=== PATIENT | male | born 1945 | race Caucasian/White ===

== ENCOUNTER 2023-10-22 09:01 | Observation (INO) | payer BC ==
[2023-10-22] MEDS ORDERED: NITROGLYCERIN SL TABS 0.4 MG TAB SUBLINGUAL PRN (09:43)
--- NOTE | 2023-10-22 09:43 | ED ---
General Adult HPI - General Chief complaint: Chest Pain Stated complaint: Chest Pain Time Seen by Provider: 10/22/23 09:12 Source: patient, RN notes reviewed Mode of arrival: ambulatory Limitations: no limitations - History of Present Illness Initial comments: Patient is a 78-year-old male presenting to the emergency department with concerns for chest pain. Onset was around 230. Discomfort is like pressure. Mild sweating, mild dyspnea. No nausea or vomiting. Discomfort is sternal. No radiation. Discomfort is currently 2/10. Patient was seen at [facility] and transferred. Chart reviewed. - Related Data Allergies Allergy/AdvReac Type Severity Reaction Status Date / Time No Known Allergies Allergy Verified 10/22/23 09:15 Review of Systems ROS Statement: Those systems with pertinent positive or pertinent negative responses have been documented in the HPI. ROS Other: All systems not noted in ROS Statement are negative. Constitutional: Denies: fever Eyes: Denies: eye pain ENT: Denies: ear pain Respiratory: Denies: cough Cardiovascular: Reports: as per HPI, chest pain Musculoskeletal: Denies: back pain Past Medical History Past Medical History: No Reported History History of Any Multi-Drug Resistant Organisms: None Reported Past Surgical History: Appendectomy, Tonsillectomy Past Psychological History: No Psychological Hx Reported Smoking Status: Never smoker Past Alcohol Use History: None Reported Past Drug Use History: None Reported General Exam Limitations: no limitations General appearance: alert, in no apparent distress Head exam: Present: normocephalic Eye exam: Present: normal appearance Neck exam: Present: normal inspection Respiratory exam: Present: normal lung sounds bilaterally Cardiovascular Exam: Present: bradycardia, normal heart sounds Expanded Peripheral pulses: 2+: Radial (R), Radial (L), Dorsalis Pedis (R), Dorsalis P kayla (L) GI/Abdominal exam: Present: soft. Absent: tenderness Extremities exam: Present: normal inspection. Absent: pedal edema, calf tenderness Neurological exam: Present: alert Psychiatric exam: Present: normal affect, normal mood Skin exam: Present: normal color Course Vital Signs 10/22/23 09:09 Temperature 97.8 F Pulse Rate 46 L Respiratory 18 Rate Blood Pressure 160/69 O2 Sat by Pulse 96 Oximetry EKG Findings - EKG Results: EKG: interpreted by ERMD, sinus rhythm, normal axis, normal QRS, normal ST/T Medical Decision Making - Medical Decision Making Was pt. sent in by a medical professional or institution (, MANOLO, LOADING UNIT TOOL SETTER, urgent care, hospital, or senior care...) When possible be specific @ -Patient was sent from [facility] Did you speak to anyone other than the patient for history (EMS, parent, family, police, friend...)? What history was obtained from this source @ -Transferring physician Did you review nursing and triage notes (agree or disagree)? Why? @ -I reviewed and agree with nursing and triage notes Were old charts reviewed (outside hosp., previous admission, EMS record, old EKG, old radiological studies, urgent care reports/EKG's, senior care records)? Report findings @ -Chart reviewed from [facility] Differential Diagnosis (chest pain, altered mental status, abdominal pain women, abdominal pain men, vaginal bleeding, weakness, fever, dyspnea, syncope, headache, dizziness, GI bleed, back pain, seizure, CVA, palpatations, mental health, musculoskeletal)? @ -Differential Chest Pain: Stable Angina, Unstable Angina, STEMI, NSTEMI Aortic Dissection, Pneumothorax, Musculoskeletal, Esophageal Spasm GERD, Cholecystitis, Pancreatitis, Zoster, this is not meant to be an all-inclusive list. EKG interpreted by me (3pts min.). @ -As above X-rays interpreted by me (1pt min.). @ -None done CT interpreted by me (1pt min.). @ -None done U/S interpreted by me (1pt. min.). @ -None done What testing was considered but not performed or refused? (CT, X-rays, U/S, labs)? Why? @ -None What meds were considered but not given or refused? Why? @ -None Did you discuss the management of the patient with other professionals (professionals i.e. , MANOLO, LOADING UNIT TOOL SETTER, lab, RT, psych nurse, delinquency prevention social worker, sales marketing director, teacher, personnel training officer, case investigator)? Give summary @ -Case discussed with Dr. Flores who will admit covering hospital call Was smoking cessation discussed for >3mins.? @ -No Was critical care preformed (if so, how long)? @ -No Were there social determinants of health that impacted care today? How? (Homelessness, low income, unemployed, alcoholism, drug addiction, transportation, low edu. Level, literacy, decrease access to med. care, assisted, rehab)? @ -No Was there de-escalation of care discussed even if they declined (Discuss DNR or withdrawal of care, Hospice)? DNR status @ -No What co-morbidities impacted this encounter? (DM, HTN, Smoking, COPD, CAD, Cancer, CVA, ARF, Chemo, Hep., AIDS, mental health diagnosis, sleep apnea, morbid obesity)? @ -History of hypertension Was patient admitted / discharged? Hospital course, mention meds given and route, prescriptions, significant lab abnormalities, going to OR and other pertinent info. @ -Patient presents as transfer from [facility] for chest pain. Patient evaluated. Patient will be admitted with cardiac consult. Admission orders written. Undiagnosed new problem with uncertain prognosis? @ -No Drug Therapy requiring intensive monitoring for toxicity (Heparin, Nitro, Insulin, Cardizem)? @ -No Were any procedures done? @ -No Diagnosis/symptom? @ -Chest pain Acute, or Chronic, or Acute on Chronic? @ -Acute Uncomplicated (without systemic symptoms) or Complicated (systemic symptoms)? @ -Default Side effects of treatment? @ -No Exacerbation, Progression, or Severe Exacerbation? @ -No Poses a threat to life or bodily function? How? (Chest pain, USA, ID, pneumonia, PE, COPD, DKA, ARF, appy, cholecystitis, CVA, Diverticulitis, Homicidal, Suicidal, threat to staff... and all critical care pts) @ -Threat to cardiac function Disposition Clinical Impression: Chest pain Disposition: ADMITTED IP TO THIS HOSP Is patient prescribed a controlled substance at d/c from ED?: No Referrals: None,Stated [Primary Care Provider] - 1-2 days Time of Disposition: 09:43
[2023-10-22] MEDS: ASPIRIN 81 MG PO STA (09:51)
--- NOTE | 2023-10-22 11:07 | P.HPIM ---
History of Present Illness H&P Date: 10/22/23 History of Presenting Illness: Patient is a very pleasant 78-year-old male with a past medical history of hypertension, hyperlipidemia, and provoked DVT (20 years ago). He lives in [place] and is currently camping in this area. He reports following with a primary care doctor in [place] but denies following with a wood filler and denies cardiac history. He reports lying in bed and awoke around 2:30 AM with chest pain/pressure to his midsternal chest accompanied by diaphoresis and shortness of breath. Patient described this pain as a pressure and reports it was like someone just punched him right in the middle of his chest. He denies any radiation of pain but reports pain has been waxing and waning on and off throughout the morning and has been accompanied by mild diaphoresis and shortness of breath. He denies having any headache, lightheadedness, dizziness, palpitations, cough or congestion, nausea, vomiting, or experiencing any numbness/tingling/weakness/swelling in his extremities. Patient initially presented to [facility] and underwent evaluation in their emergency department and was transferred to our facility for admission to cardiac observation unit for further evaluation and consult to wood filler.. Upon arrival to our facility, patient underwent evaluation in our emergency department. Vital signs upon arrival show blood pressure 160/69, heart rate 46, respiratory rate 18, temp 97.8 F, and SpO2 of 96% on room air. EKG was completed showing sinus bradycardia at 44 bpm with no noted T wave or ST abnormalities showing no signs of acute ischemia upon personal review and interpretation. Troponin less than 0.012. Patient admitted under our services with consultation to cardiology. Data reviewed from [facility]: Vital signs upon arrival to their facility show blood pressure 142/66, heart rate 48, respiratory rate 19, temp 97.2 F, and SpO2 of 95% on room air. Troponin less than 0.05 with repeat troponin less than 0.05. D-dimer was elevated at 2.370. Magnesium 2.0. BMP was unremarkable with sodium of 140, potassium 3.9, chloride 106, bicarb 21, slightly elevated anion gap of 13 and normal renal function with BUN of 20.0, creatinine 1.0, and GFR of 81.30. Liver profile normal findings with exception of slightly elevated AST of 45. Coagula tion profile showing PT of 12.1, INR 1.18, and PTT 24.3. BNP normal findings at less than 27. CBC showing no significant abnormalities with WBC count of 7.1, hemoglobin 13.7, and platelet count of 202,000. CT abdomen and pelvis with contrast was negative for acute process. CTA chest negative for PE Chest x-ray negative for acute cardiopulmonary process. Review of systems: Pertinent positives and negatives as discussed in HPI, a complete review of systems was performed and all other systems are negative. Physical exam: Vital signs reviewed and stable. General: Nontoxic, no distress and appears stated age. Derm: Skin warm and dry, normal coloration for ethnicity. Head: Atraumatic, normocephalic and symmetric. Eyes: EOMs intact, no lid lag, and anicteric sclera Mouth: no lip lesions, mucus membranes moist Cardiovascular: regular rate and rhythm with normal S1S2, no murmur, positive posterior tibial pulses bilaterally, and cap refill < 2 seconds. Lungs: Respirations even, regular, and unlabored on room air. Lungs CTA bilaterally, no rhonchi, no rales, no wheezing, and no accessory muscle usage. Abdominal: soft, nontender to palpation, no guarding, no appreciable organomegaly Ext: ROM intact. No gross muscle atrophy, no edema, no contractures Neuro: Speech clear, face symmetrical and CN II-XII grossly intact with no noted focal neuro deficits Psych: Alert and oriented to person, place, time, and situation. Appropriate and pleasant affect. Assessment and Plan of Care: Chest pain, rule out acute coronary event Asymptomatic bradycardia Elevated D-dimer, CTA negative for PE Hypertension Hyperlipidemia -Cardiology consulted, appreciate recommendations -Telemetry monitoring -Trend troponins -Cardiac diet, NPO at midnight -Aspirin 81 mg daily, atorvastatin 20 mg daily, and lisinopril 20 mg daily. -Lipid profile with a.m. labs. -Echocardiogram Data and imaging reviewed: As stated above in HPI The patient is admitted with an anticipated less than 2 midnight stay for evaluation of atypical chest pain CODE STATUS: Full code DVT prophylaxis: Heparin Anticipated discharge date: Pending clinical course, likely 24 to [address]: Home Patient was seen independently by Nurse Practitioner. This document was prepared using [employer] dictation software. Please allow for errors in cash applications clerk while rare they do occur. . I reviewed the documentation as provided by the SUSHANT above, who is the original author of this note. I agree with the documented assessment and plan, with the following changes: none Past Medical History Past Medical History: No Reported History History of Any Multi-Drug Resistant Organisms: None Reported Past Surgical History: Appendectomy, Tonsillectomy Past Psychological History: No Psychological Hx Reported Smoking Status: Never smoker Past Alcohol Use History: None Reported Past Drug Use History: None Reported Medications and Allergies Home Medications Medication Instructions Recorded Confirmed Type Simvastatin [Zocor] 20 mg PO DAILY 10/22/23 10/22/23 History Fenofibrate,Micronized 134 mg PO DAILY 10/24/23 10/24/23 History [Fenofibrate] lisinopriL [Zestril] 20 mg PO DAILY 10/24/23 10/24/23 History Allergies Allergy/AdvReac Type Severity Reaction Status Date / Time No Known Allergies Allergy Verified 10/22/23 10:42 Physical Exam Vitals: Vital Signs Temp Pulse Resp BP Pulse Ox 10/22/23 11:02 42 L 18 169/70 98 10/22/23 09:09 97.8 F 46 L 18 160/69 96 Intake and Output 10/21/23 10/22/23 10/22/23 22:59 06:59 14:59 Other: Weight 81.647 kg Results CBC & Chem 7: 10/23/23 03:22 10/23/23 03:22
[2023-10-22] MEDS ORDERED: lisinopriL 20 MG TAB PO SCH (11:30)
--- NOTE | 2023-10-22 12:44 | P.CRDCN ---
History of Present Illness Consult date: 10/22/23 History of present illness: This is a 78-year-old gentleman with a past medical history significant for hypertension and known asymptomatic bradycardia presented to the hospital complaining of chest discomfort but he was camping with his family when he started experiencing discomfort in the middle of the chest when he was sitting with no radiation to the arms or neck or shoulders or back and no associated symptoms of shortness of breath or sweating or dizziness or lightheadedness or any feeling of heart racing or fluttering or presyncope or syncope. The discomfort lasted for few minutes only and resolved. He decided to come to the hospital. Further investigation performed including an EKG showing sinus rhythm with sinus bradycardia with no ischemic ST or T wave abnormalities and also enzymes were checked in different hospital but not available at this point came in to be unremarkable. We are going to repeat the cardiac enzymes while he is here. The rest of the workup by history came in to be unremarkable and currently his chest pain-free. No history of CAD or heart failure or cardiac arrhythmia and never seen a health science specialist before. The examination is remarkable for regular rhythm with a soft systolic murmur and clear breathing sounds bilaterally and no carotid bruit and no edema was noted Assessment Chest discomfort seems to be atypical and has resolved Hypertension Asymptomatic bradycardia Plan Avoid any AV regine brenda agents Rule out acute coronary event Obtain serial cardiac enzymes Obtain an echocardiogram with Doppler Obtain TSH and free T4 Follow-up with the patient Past Medical History Past Medical History: No Reported History History of Any Multi-Drug Resistant Organisms: None Reported Past Surgical History: Appendectomy, Tonsillectomy Past Psychological History: No Psychological Hx Reported Smoking Status: Never smoker Past Alcohol Use History: None Reported Past Drug Use History: None Reported Medications and Allergies Home Medications Medication Instructions Recorded Confirmed Type Lisinopril(Unknown Dose) 20 mg PO DAILY 10/22/23 10/22/23 History Simvastatin [Zocor] 20 mg PO DAILY 10/22/23 10/22/23 History Allergies Allergy/AdvReac Type Severity Reaction Status Date / Time No Known Allergies Allergy Verified 10/22/23 10:42 Physical Exam Vitals: Vital Signs Temp Pulse Pulse Resp BP BP Pulse Ox 10/22/23 11:34 97.7 F 46 L 16 170/75 98 10/22/23 11:02 42 L 18 169/70 98 10/22/23 09:09 97.8 F 46 L 18 160/69 96 Intake and Output 10/21/23 10/22/23 10/22/23 22:59 06:59 14:59 Other: Weight 81.647 kg Results Cardiac Enzymes 10/22/23 Range/Units 10:45 Troponin I <0.012 (0.000-0.034) ng/mL Current Medications Generic Name Dose Route Start Last Admin Trade Name Freq PRN Reason Stop Dose Admin Aspirin 81 mg 10/23/23 09:00 Aspirin 81 Mg PO DAILY [facility] Atorvastatin Calcium 20 mg 10/23/23 09:00 Atorvastatin 20 Mg Tab PO DAILY [facility] Heparin Sodium (Porcine) 5,000 unit 10/22/23 16:00 Heparin Sodium,Porcine 5,000 Unit/Ml 1 Ml Vial SQ Q8HR [facility] Lisinopril 20 mg 10/22/23 11:30 Lisinopril 20 Mg Tab PO DAILY [facility] Nitroglycerin 0.4 mg 10/22/23 09:43 Nitroglycerin Sl Tabs 0.4 Mg Tab SUBLINGUAL Q5M PRN Chest Pain Nitroglycerin 1 inch 10/22/23 12:00 Nitroglycerin Oint 1 Inch/Gm Packet TOPICAL Q6HR [facility] Intake and Output 10/21/23 10/22/23 10/22/23 22:59 06:59 14:59 Other: Weight 81.647 kg Patient Weight 10/23/23 06:59 Weight 81.647 kg
[2023-10-22] MEDS: NITROGLYCERIN OINT 1 INCH/GM PACKET TOPICAL SCH (13:01)
[2023-10-22] MEDS: lisinopriL 20 MG TAB PO SCH (16:48)
[2023-10-22] MEDS: HEPARIN SODIUM,PORCINE 5,000 UNIT/ML 1 ML VIAL SQ SCH (16:50)
[2023-10-23 03:49] LABS: HCT 39.1 % (39.0-53.0); HGB 13.3 gm/dL (13.0-17.5); MCH 33.7 pg (25.0-35.0); MCV 98.9 fL (80.0-100.0); Mean Platelet Volume 7.2; Platelet Count 217 k/uL (150-450); RBC 3.96 m/uL (4.30-5.90); RDW 12.5 % (11.5-15.5); WBC 5.1 k/uL (3.8-10.6)
[2023-10-23] MEDS ORDERED: ATORVASTATIN 10 MG TAB PO SCH (09:00)
[2023-10-23] MEDS ORDERED: ASPIRIN 325 MG TAB PO SCH (09:00)
[2023-10-23] MEDS: ASPIRIN 81 MG PO SCH (09:20)
[2023-10-23] MEDS: ATORVASTATIN 20 MG TAB PO SCH (09:20)
--- NOTE | 2023-10-23 11:32 | P.PN ---
Subjective Progress Note Date: 10/23/23 Principal diagnosis: I reviewed the documentation as provided by the SUSHANT above, who is the original author of this note. I agree with the documented assessment and plan, with the following changes: none Hospital Course: Patient is a very pleasant 78-year-old male with a past medical history of hypertension, hyperlipidemia, and provoked DVT (20 years ago). He lives in [place] and is currently camping in this area. He reports following with a primary care doctor in [place] but denies following with a senior network administrator and denies cardiac history. He reports lying in bed and awoke around 2:30 AM with chest pain/pre ssure to his midsternal chest accompanied by diaphoresis and shortness of breath. Patient described this pain as a pressure and reports it was like someone just punched him right in the middle of his chest. He denies any radiation of pain but reports pain has been waxing and waning on and off thro ughout the morning and has been accompanied by mild diaphoresis and shortness of breath. He denies having any headache, lightheadedness, dizziness, palpitations, cough or congestion, nausea, vomiting, or experiencing any numbness/tingling/weakness/swelling in his extremities. Patient initially pre sented to [facility] and underwent evaluation in their emergency department and was transferred to our facility for admission to cardiac observation unit for further evaluation and consult to senior network administrator.. Upon arrival to our facility, patient underwent evaluation in our emergency depart ment. Vital signs upon arrival show blood pressure 160/69, heart rate 46, respiratory rate 18, temp 97.8 F, and SpO2 of 96% on room air. EKG was completed showing sinus bradycardia at 44 bpm with no noted T wave or ST abnormalities showing no signs of acute ischemia upon personal review and inter pretation. Troponin less than 0.012. Patient admitted under our services with consultation to cardiology. Data reviewed from [facility]: Vital signs upon arrival to their facility show blood pressure 142/66, heart rate 48, respiratory rate 19, temp 97.2 F, and SpO2 of 95% on room air. Troponin less than 0.05 with repeat troponin less than 0.05. D-dimer was elevated at 2.370. Magnesium 2.0. BMP was unremarkable with sodium of 140, po tassium 3.9, chloride 106, bicarb 21, slightly elevated anion gap of 13 and normal renal function with BUN of 20.0, creatinine 1.0, and GFR of 81.30. Liver profile normal findings with exception of slightly elevated AST of 45. Coagulation profile showing PT of 12.1, INR 1.18, and PTT 24.3. BNP normal findings at less than 27. CBC showing no significant abnormalities with WBC count of 7.1, hemoglobin 13.7, and platelet count of 202,000. CT abdomen and pelvis with contrast was negative for acute process. CTA chest negative for PE Chest x-ray negative for acute cardiopulmonary process. Physical exam: Patient was seen and fully evaluated at bedside this morning. He reports no further episodes of chest pain/pressure since yesterday denies having any other complaints including headache, lightheadedness, dizziness, diaphoresis, palpitations, shortness of breath, cough or congestion, abdominal pain, nausea, or vomiting. Vital signs reviewed and stable. General: Nontoxic, no distress and appears stated age. Derm: Skin warm and dry, normal coloration for ethnicity. Head: Atraumatic, normocephalic and symmetric. Eyes: EOMs intact, no lid lag, and anicteric sclera Mouth: no lip lesions, mucus membranes moist Cardiovascular: regular rate and rhythm with normal S1S2, no murmur, positive posterior tibial pulses bilaterally, and cap refill < 2 seconds. Lungs: Respirations even, regular, and unlabored on room air. Lungs CTA bila terally, no rhonchi, no rales, no wheezing, and no accessory muscle usage. Abdominal: soft, nontender to palpation, no guarding, no appreciable organomegaly Ext: ROM intact. No gross muscle atrophy, no edema, no contractures Neuro: Speech clear, face symmetrical and CN II-XII grossly intact with no noted focal neuro deficits Psych: Alert and oriented to person, place, time, and situation. Appropriate and pleasant affect. Assessment and Plan of Care: Chest pain, acute coronary event ruled out Asymptomatic bradycardia Elevated D-dimer, CTA negative for PE Hypertension Hyperlipidemia -Cardiology consulted, reviewed documentation in chart. -Telemetry monitoring -Troponins negative. -Cardiac diet -Continue aspirin 81 mg daily, atorvastatin 20 mg daily, and lisinopril 20 mg daily. -Lipid profile pending. -Echocardiogram completed and currently pending results. Data and imaging reviewed: Labs reviewed. Troponins negative at less than 0.012 x 2 draws. Repeat morning CBC was unremarkable. TSH normal findings at 0.862. CMP and lipid profile pending at this time, will follow-up with results once available. Vital signs reviewed. Blood pressure 147/71, heart rate 49, respiratory rate 17, temp 97.5 F, and SpO2 of 96% on room air. The patient is admitted with an anticipated less than 2 midnight stay for evaluation of atypical chest pain CODE STATUS: Full code DVT prophylaxis: Heparin Anticipated discharge date: Pending clinical course, likely 24 to [address]: Home Patient was seen independently by Nurse Practitioner. This document was prepared using [employer] dictation software. Please allow for errors in ranch helper while rare they do occur. Objective - Vital Signs Vital signs: Vital Signs Temp 97.5 F L 10/23/23 07:00 Pulse 49 L 10/23/23 07:00 Resp 17 10/23/23 07:00 BP 147/71 10/23/23 07:00 Pulse Ox 96 10/23/23 07:00 FiO2 Intake & Output 10/22/23 10/23/23 10/23/23 18:59 06:59 18:59 Intake Total 236 780 Balance 236 780 Weight 81.647 kg Intake: Oral 236 780 Other: # Voids 2 2 - Labs CBC & Chem 7: 10/23/23 03:22 10/23/23 03:22 Labs: Abnormal Lab Results - Last 24 Hours (Table) 10/23/23 Range/Units 03:22 RBC 3.96 L (4.30-5.90) m/uL
--- NOTE | 2023-10-23 12:26 | P.PN ---
Subjective Progress Note Date: 10/23/23 This is a 78-year-old gentleman with a past medical history significant for hypertension and known asymptomatic bradycardia presented to the hospital complaining of chest discomfort but he was camping with his family when he started experiencing discomfort in the middle of the chest when he was sitting with no radiation to the arms or neck or shoulders or back and no associated symptoms of shortness of breath or sweating or dizziness or lightheadedness or any feeling of heart racing or fluttering or presyncope or syncope. The discomfort lasted for few minutes only and resolved. He decided to come to the hospital. Further investigation performed including an EKG showing sinus rhythm with sinus bradycardia with no ischemic ST or T wave abnormalities and also enzymes were checked in different hospital but not available at this point came in to be unremarkable. We are going to repeat the cardiac enzymes while he is here. The rest of the workup by history came in to be unremarkable and curre ntly his chest pain-free. No history of CAD or heart failure or cardiac arrhythmia and never seen a vehicle sales professional before. The examination is remarkable for regular rhythm with a soft systolic murmur and clear breathing sounds bilaterally and no carotid bruit and no edema was noted April 24, 2023 The patient was seen and evaluated this morning. He is asymptomatic. He is stable with marginally low heart rate which is known to him from before. The echo still pending. I advised the patient to undergo a stress test to rule out severe underlying coronary artery disease and he would like to speak with his and think about it at this point. Examination is remarkable for regular rhythm with a clear breathing sounds bilaterally and no edema was noted in the lower extremities. Please note that TSH and free T4 came in to be unremarkable Assessment Chest discomfort seems to be atypical and has resolved Hypertension Asymptomatic bradycardia Plan Avoid any AV regine brenda agents Acute coronary syndrome was ruled out Thyroid disorder has been ruled out Stress test if the patient agreed Follow-up on the echocardiogram Objective - Vital Signs Vital signs: Vital Signs Temp 97.5 F L 10/23/23 07:00 Pulse 49 L 10/23/23 07:00 Resp 17 10/23/23 07:00 BP 147/71 10/23/23 07:00 Pulse Ox 96 10/23/23 07:00 FiO2 Intake & Output 10/22/23 10/23/23 10/23/23 18:59 06:59 18:59 Intake Total 236 780 236 Balance 236 780 236 Weight 81.647 kg Intake: Oral 236 780 236 Other: # Voids 2 2 - Labs CBC & Chem 7: 10/23/23 03:22 Labs: Abnormal Lab Results - Last 24 Hours (Table) 10/23/23 Range/Units 03:22 RBC 3.96 L (4.30-5.90) m/uL
[2023-10-23 12:59] LABS: Blood Urea Nitrogen 15.3 mg/dL (9.0-27.0); Chloride 107 mmol/L (96-109); Glucose 103 mg/dL (70-110); LDL Cholesterol,Calculated 97.3 mg/dL (0.0-131.0); Magnesium 1.9 mg/dL (1.5-2.4); Potassium 4.7 mmol/L (3.5-5.5); Sodium 140 mmol/L (135-145)
[2023-10-23 13:00] LABS: ALT 42 U/L (10-49); AST 49 U/L (14-35); Albumin 3.8 g/dL (3.8-4.9); Albumin/Globulin Ratio 1.52 Ratio (1.60-3.17); Alkaline Phosphatase 56 U/L (41-126); Calcium 9.4 mg/dL (8.7-10.3); Globulin 2.5 g/dL (1.6-3.3); Total Bilirubin 0.5 mg/dL (0.3-1.2); Total Protein 6.3 g/dL (6.2-8.2)
--- NOTE | 2023-10-23 15:34 | CA ---
Transthoracic Echo Report Name: Sulaiman Delgado Age: 78 Gender: M : 1945 Exam Date: 10/22/2023 14:35 Exam Location: [facility] Ht (in): 69 Wt (lb): 180 Ordering Physician: Pawel Ware Attending/Referring Phys: Appraiser Personal Property Emily Kimbrough RDCS Procedure CPT: Indications: eval structure and funciton of heart Cardiac Hx: Technical Quality: Technically difficult study Contrast 1: Definity Total Dose (mL): 2 Contrast 2: Total Dose (mL): MEASUREMENTS (Male / Female) Normal Values 2D ECHO LV Diastolic Diameter PLAX 5.1 cm 4.2 - 5.9 / 3.9 - 5.3 cm LV Systolic Diameter PLAX 3.8 cm IVS Diastolic Thickness 1.2 cm 0.6 - 1.0 / 0.6 - 0.9 cm LVPW Diastolic Thickness 1.1 cm 0.6 - 1.0 / 0.6 - 0.9 cm LV Relative Wall Thickness 0.5 RV Internal Dim ED PLAX 3.3 cm LA Systolic Diameter LX 4.2 cm 3.0 - 4.0 / 2.7 - 3.8 cm LA Volume 75.2 cm??? 18 - 58 / 22 - 52 cm??? LA Volume Index 37.4 cm???/m??? 16 - 28 cm???/m??? M-MODE Aortic Root Diameter MM 3.3 cm AV Cusp Separation MM 2.1 cm DOPPLER AV Peak Velocity 191.3 cm/s AV Peak Gradient 14.6 mmHg AV Mean Velocity 128.8 cm/s AV Mean Gradient 7.4 mmHg AV Velocity Time Integral 42.6 cm AI Peak Velocity 149.3 cm/s AI Peak Gradient 8.9 mmHg AI Pressure Half Time 639.7 ms MV Area PHT 2.1 cm??? Mitral E Point Velocity 84.2 cm/s Mitral A Point Velocity 109.5 cm/s Mitral E to A Ratio 0.8 MV Deceleration Time 364.7 ms TR Peak Velocity 243.8 cm/s TR Peak Gradient 23.8 mmHg Right Ventricular Systolic Press 28.0 mmHg FINDINGS Left Ventricle Left ventricular ejection fraction is estimated at 55-60 %. Left ventricular cavity size normal. Mildly increased septal wall thickness. No obvious regional wall motion abnormalities. Right Ventricle Mild right ventricular dilatation. Right ventricular systolic pressure within normal limits. Right Atrium Normal right atrial size. No right atrial thrombus or mass seen. Left Atrium Mildly increased left atrial diameter. Moderately increased left atrial volume. Mildly increased left atrial area. Mitral Valve Mitral valve thickened. No mitral stenosis, regurgitation or prolapse. Aortic Valve Trileaflet aortic valve. Aortic valve sclerosis. Mild aortic stenosis with a peak gradient of 15 mmHg and a mean gradient of 7 mmHg. Trace to mild aortic regurgitation. Tricuspid Valve Structurally normal tricuspid valve. Mild tricuspid regurgitation. Pulmonic Valve Pulmonic valve not well visualized. No pulmonic regurgitation. Pericardium No pericardial effusion. No pleural effusion. Aorta Normal size aortic root and proximal ascending aorta. CONCLUSIONS Technically difficult study with poor acoustic windows Normal LV systolic function Aortic sclerosis with mild aortic stenosis and mild insufficiency Previewed by: Dr. Ozzy Foy MD (Electronically Signed) Final Date: 23 October 2023 15:33
[2023-10-24] MEDS ORDERED: REGADENOSON 0.4 MG/5 ML SYRINGE IV PRN (07:00)
[2023-10-24] MEDS ORDERED: CAFFEINE CITRATE 60 MG/3 ML VIAL IV PRN (07:00)
[2023-10-24] MEDS ORDERED: AMINOPHYLLINE 500 MG/20 ML VIAL IV PRN (07:00)
--- NOTE | 2023-10-24 11:14 | P.PN ---
Subjective HISTORY OF PRESENT ILLNESS: This is a 78-year-old gentleman with a past medical history significant for hypertension and known asymptomatic bradycardia presented to the hospital complaining of chest discomfort but he was camping with his family when he started experiencing discomfort in the middle of the chest when he was sitting with no radiation to the arms or neck or shoulders or back and no associated symptoms of shortness of breath or sweating or dizziness or lightheadedness or any feeling of heart racing or fluttering or presyncope or syncope. The discomfort lasted for few minutes only and resolved. He decided to come to the hospital. Further investigation performed including an EKG showing sinus rhythm with sinus bradycardia with no ischemic ST or T wave abnormalities and also enzymes were checked in different hospital but not available at this point came in to be unremarkable. We are going to repeat the cardiac enzymes while he is here. The rest of the workup by history came in to be unremarkable and currently his chest pain-free. No history of CAD or heart failure or cardiac arrhythmia and never seen a tin roller hot mill before. The examination is remarkable for regular rhythm with a soft systolic murmur and clear breathing sounds bilaterally and no carotid bruit and no edema was noted October 23, 2023 The patient was seen and evaluated this morning. He is asymptomatic. He is stable with marginally low heart rate which is known to him from before. The echo still pending. I advised the patient to undergo a stress test to rule out severe underlying coronary artery disease and he would like to speak with his w gisell and think about it at this point. Examination is remarkable for regular rhythm with a clear breathing sounds bilaterally and no edema was noted in the lower extremities. Please note that TSH and free T4 came in to be unremarkable October 24, 2023 Patient examined this morning at the bedside. Patient currently denies any chest pain or pressure. He denies shortness of breath. Vital signs are stable. Echocardiogram completed revealing ejection fraction 55 to 60% with no obvious regional wall motion abnormalities. PHYSICAL EXAM: VITAL SIGNS: Reviewed. GENERAL: Well-developed in no acute distress. NECK: Supple. No JVD or thyromegaly LUNGS: Respirations even and unlabored. Lungs essentially clear to auscultation bilaterally. HEART: Regular rate and rhythm. S1 and S2 heard. EXTREMITIES: Normal range of motion. No clubbing or cyanosis. Peripheral pulses intact. No lower extremity edema ASSESSMENT: Chest pain, troponin negative x 3 Asymptomatic bradycardia Hypertension Hyperlipidemia PLAN: Current cardiac medications Patient medical Lexiscan stress test today If negative, he may be discharged home from a cardiac standpoint Patient encouraged to follow-up with a tin roller hot mill in [place] where he resides Nurse practitioner note has been reviewed by physician. Signing provider agrees with the documented findings, assessment, and plan of care documented by CHILD PSYCHOMETRIST as a scribe. Objective - Vital Signs Vital signs: Vital Signs Temp 98.1 F 10/24/23 07:35 Pulse 47 L 10/24/23 07:35 Resp 17 10/24/23 07:35 BP 157/78 10/24/23 07:35 Pulse Ox 95 10/24/23 10:02 FiO2 Intake & Output 10/23/23 10/24/23 10/24/23 18:59 06:59 18:59 Intake Total 472 Balance 472 Intake: Oral 472 Other: # Voids 4 2 # Bowel Movements 1 - Labs CBC & Chem 7: 10/23/23 03:22 10/23/23 03:22 Labs: Abnormal Lab Results - Last 24 Hours (Table) 10/23/23 Range/Units 03:22 Carbon Dioxide 21.0 L (21.6-31.8) mmol/L AST 49 H (14-35) U/L Albumin/Globulin Ratio 1.52 L (1.60-3.17) Ratio
--- NOTE | 2023-10-24 15:10 | CA ---
Lexiscan Nuclear Stress Test Report Name: Sulaiman Delgado Exam Date: 10/24/2023 10:37 Exam Location: [facility] Ht (in): 69 Wt (lb): 180 BSA: 1.98 Ordering Phys: Ozzy Foy MD Referring Phys: PATTI Technologist: Jose Daniel Boyd Age: 78 Gender: M : 1945 Procedure CPT: Indications: Reflex order-Stress test ICD-10 Codes: Patient History: CHEST PAIN, HTN, FAMILY HX OF HEART DISEASE, PRIOR HEART CATH Medications: Meds past 24 hrs: Pretest Chest Pain: STRESS TEST Lexiscan Protocol Exercise Duration (min:sec): 02:[address] Depressions (mm): Angina Score: Doyle Score: Resting HR (bpm): 43 Peak HR (bpm): 86 Resting BP (mmHg): 146 / 79 Peak BP (mmHg): 154 / 58 MPHR: 143 Target HR: 122 % MPHR: 60 METS: 1.0 Total Dose: Peak Dose: Atropine: Double Product: 91127 BP Response: Stress Termination: INFUSION COMPLETE Stress Symptoms: NO SYMPTOMS Stress Summary: ECG ANALYSIS Resting ECG: Stress ECG: CONCLUSIONS No ECG evidence for ischemia Nuclear portion will be reported separately Dr. Juan Ramon Persaud MD (Electronically Signed) Final Date: 24 October 2023 15:09
--- NOTE | 2023-10-24 17:20 | P.PN ---
Subjective Progress Note Date: 10/24/23 Principal diagnosis: I reviewed the documentation as provided by the SUSHANT above, who is the original author of this note. I agree with the documented assessment and plan, with the following changes: none Continue to await Lexiscan stress results, discussed thus with patient and patient's at bedside, patient has a 6-hour drive home and neither he nor his are able to drive in the dark. Being that Angy scan stress results remain pending at 5:15 PM patient to remain hospitalized until tomorrow morning and pending Lexiscan results. RN calling to have patient's sent to [facility] overnight due to delayed discharge. Hospital Course: Patient is a very pleasant 78-year-old male with a past medical history of hypertension, hyperlipidemia, and provoked DVT (20 years ago). He lives in [place] and is currently camping in this area. He reports following with a primary care doctor in [place] but denies following with a underground mining section foreman and denies cardiac history. He reports lying in bed and awoke around 2:30 AM with chest pain/pressure to his midsternal chest accompanied by diaphoresis and shortness of breath. Patient described this pain as a pressure and reports it was like someone just punched him right in the middle of his chest. He denies any radiation of pain but reports pain has been waxing and waning on and off throughout the morning and has been accompanied by mild diaphoresis and shortness of breath. He denies having any headache, lightheadedness, dizziness, palpitations, cough or congestion, nausea, vomiting, or experiencing any numbness/tingling/weakness/swelling in his extremities. Patient initially presented to [facility] and underwent evaluation in their emergency department and was transferred to our facility for admission to cardiac observation unit for further evaluation and consult to underground mining section foreman.. Upon arrival to our facility, patient underwent evaluation in our emergency department. Vital signs upon arrival show blood pressure 160/69, heart rate 46, respiratory rate 18, temp 97.8 F, and SpO2 of 96% on room air. EKG was completed showing sinus bradycardia at 44 bpm with no noted T wave or ST abnormalities showing no signs of acute ischemia upon personal review and interpretation. Troponin less than 0.012. Patient admitted under our services with consultation to cardiology. Troponins were trended all negative at less than 0.012. Echocardiogram was completed showing a preserved EF of 55 to 60% with aortic sclerosis and mild aortic stenosis. Patient underwent a Lexiscan stress test. Cardiology evaluated reporting that their stress test was negative for ECG changes showing no signs of stress-induced ischemia however Lexiscan stress remains pending. Data reviewed from [facility]: Vital signs upon arrival to their facility show blood pressure 142/66, heart rate 48, respiratory rate 19, temp 97.2 F, and SpO2 of 95% on room air. Troponin less than 0.05 with repeat troponin less than 0.05. D-dimer was elevated at 2.370. Magnesium 2.0. BMP was unremarkable with sodium of 140, potassium 3.9, chloride 106, bicarb 21, slightly elevated anion gap of 13 and normal renal function with BUN of 20.0, creatinine 1.0, and GFR of 81.30. Liver profile normal findings with exception of slightly elevated AST of 45. Coagulation profile showing PT of 12.1, INR 1.18, and PTT 24.3. BNP normal findings at less than 27. CBC showing no significant abnormalities with WBC count of 7.1, hemoglobin 13.7, and platelet count of 202,000. CT abdomen and pelvis with contrast was negative for acute process. CTA chest negative for PE Chest x-ray negative for acute cardiopulmonary process. Physical exam: Patient was seen and fully evaluated at bedside this morning upon returning from Lexiscan stress test. He reports no further episodes of chest pain/pressure since arrival and denies having any other complaints including headache, lightheadedness, dizziness, diaphoresis, palpitations, shortness of breath, cough or congestion, abdominal pain, nausea, or vomiting. Vital signs reviewed and stable. General: Nontoxic, no distress and appears stated age. Derm: Skin warm and dry, normal coloration for ethnicity. Head: Atraumatic, normocephalic and symmetric. Eyes: EOMs intact, no lid lag, and anicteric sclera Mouth: no lip lesions, mucus membranes moist Cardiovascular: regular rate and rhythm with normal S1S2, no murmur, positive posterior tibial pulses bilaterally, and cap refill < 2 seconds. Lungs: Respirations even, regular, and unlabored on room air. Lungs CTA bilaterally, no rhonchi, no rales, no wheezing, and no accessory muscle usage. Abdominal: soft, nontender to palpation, no guarding, no appreciable organomegaly Ext: ROM intact. No gross muscle atrophy, no edema, no contractures Neuro: Speech clear, face symmetrical and CN II-XII grossly intact with no noted focal neuro deficits Psych: Alert and oriented to person, place, time, and situation. Appropriate and pleasant affect. Assessment and Plan of Care: Chest pain, acute coronary event ruled out Asymptomatic bradycardia Elevated D-dimer, CTA negative for PE Hypertension Hyperlipidemia -Cardiology following and discussed plan of care with cardiac FURNACE PUNCHER. -Telemetry monitoring -Troponins negative. -Cardiac diet -Continue aspirin 81 mg daily, atorvastatin 20 mg daily, and lisinopril 20 mg daily. -Lipid profile unremarkable. -Echocardiogram was completed showing a preserved EF of 55 to 60% with aortic sclerosis and mild aortic stenosis. -Patient underwent a Lexiscan stress test. Cardiology evaluated reporting that their stress test was negative for ECG changes showing no signs of stress- induced ischemia however Lexiscan stress remains pending. Data and imaging reviewed: Labs reviewed. Lipid profile unremarkable. Vital signs reviewed. Blood pressure 157/78, heart rate 47, respiratory rate 17, temp 98.1 F, and SpO2 of 96% on room air. Echocardiogram was completed showing a preserved EF of 55 to 60% with aortic sclerosis and mild aortic stenosis. Patient underwent a Lexiscan stress test. Cardiology evaluated reporting that their stress test was negative for ECG changes showing no signs of stress- induced ischemia however Lexiscan stress remains pending. CODE STATUS: Full code DVT prophylaxis: Heparin Anticipated discharge date: Discharge delayed secondary to awaiting Lexiscan stress results. Anticipated discharge place: Home Patient was seen independently by Nurse Practitioner. This document was prepared using [employer] dictation software. Please allow for errors in sales and marketing assistant while rare they do occur. Objective - Vital Signs Vital signs: Vital Signs Temp 98.1 F 10/24/23 07:35 Pulse 47 L 10/24/23 07:35 Resp 17 10/24/23 07:35 BP 157/78 10/24/23 07:35 Pulse Ox 96 10/24/23 07:35 FiO2 Intake & Output 10/23/23 10/24/23 10/24/23 18:59 06:59 18:59 Intake Total 472 Balance 472 Intake: Oral 472 Other: # Voids 4 2 # Bowel Movements 1 - Labs CBC & Chem 7: 10/23/23 03:22 10/23/23 03:22 Labs: Abnormal Lab Results - Last 24 Hours (Table) 10/23/23 Range/Units 03:22 Carbon Dioxide 21.0 L (21.6-31.8) mmol/L AST 49 H (14-35) U/L Albumin/Globulin Ratio 1.52 L (1.60-3.17) Ratio
--- NOTE | 2023-10-24 18:30 | NM ---
EXAMINATION TYPE: NM stress lexiscan cardiolite DATE OF EXAM: 10/24/2023 COMPARISON: NONE CLINICAL INDICATION: Male, 78 years old with history of chest pain; TECHNIQUE: After the intravenous administration of 10.7 mCi Tc 99m Sestamibi - Cardiolite resting SP ECT images acquired 30 minutes post injection. The patient received 0.4mg Lexiscan, 24.4 mCi Tc 99m Sestamibi - Stress images obtained [address] injection FINDINGS: Review of stress and rest SPECT images demonstrates no distinct perfusion abnormality. Gated analysi s shows normal wall motion with an estimated left ventricular ejection fraction of 59 %.TID it is rusty culated at 1.07, upper limits of normal. IMPRESSION: No scintigraphic evidence for reversible ischemia.
[2023-10-25 07:45] VITALS: BP 141/76; PULSE 44; RESP 17; TEMP 97.8
--- NOTE | 2023-10-25 08:50 | P.DS ---
Providers Date of admission: 10/22/23 09:43 Expected date of discharge: 10/25/23 Attending physician: Laura Spear MD Consults: 10/22/23 09:43 Consult Physician Urgent Consulting Provider: Ozzy Foy Consult Reason/Comments: cp Do you want consulting provider notified?: Yes Primary care physician: Stated None Hospital Course: Discharge Diagnosis: Chest pain, acute coronary event ruled out Asymptomatic bradycardia Elevated D-dimer, CTA negative for PE Hypertension Hyperlipidemia Hospital Course: Patient is a very pleasant 78-year-old male with a past medical history of hypertension, hyperlipidemia, and provoked DVT (20 years ago). He lives in [place] and is currently camping in this area. He reports following with a primary care doctor in [place] but denies following with a embedded systems developer and denies cardiac history. He reports lying in bed and awoke around 2:30 AM with chest pain/pressure to his midsternal chest accompanied by diaphoresis and shortness of breath. Patient described this pain as a pressure and reports it was like someone just punched him right in the middle of his chest. He denies any radiation of pain but reports pain has been waxing and waning on and off throughout the morning and has been accompanied by mild diaphoresis and shortness of breath. He denies having any headache, lightheadedness, dizziness, palpitations, cough or congestion, nausea, vomiting, or experiencing any numbness/tingling/weakness/swelling in his extremities. Patient initially presented to [facility] and underwent evaluation in their emergency department and was transferred to our facility for admission to cardiac observation unit for further evaluation and consult to embedded systems developer.. Upon arrival to our facility, patient underwent evaluation in our emergency department. Vital signs upon arrival show blood pressure 160/69, heart rate 46, respiratory rate 18, temp 97.8 F, and SpO2 of 96% on room air. EKG was completed showing sinus bradycardia at 44 bpm with no noted T wave or ST abnormalities showing no signs of acute ischemia upon personal review and interpretation. Troponin less than 0.012. Patient admitted under our services with consultation to cardiology. Troponins were trended all negative at less than 0.012. Echocardiogram was completed showing a preserved EF of 55 to 60% with aortic sclerosis and mild aortic stenosis. Patient underwent a Lexiscan stress test. Cardiology evaluated and took patient for Lexiscan stress test. S tress test was negative for ECG changes. Lexiscan stress test was negative showing no scintigraphic evidence for reversible ischemia. Patient has been cleared from cardiology perspective and is medically stable for discharge home at this time. Patient to follow-up outpatient with his PCP and embedded systems developer upon returning to [facility]. Data and imaging reviewed from [facility]: Vital signs upon arrival to their facility show blood pressure 142/66, heart rate 48, respiratory rate 19, temp 97.2 F, and SpO2 of 95% on room air. Troponin less than 0.05 with repeat troponin less than 0.05. D-dimer was elevated at 2.370. Magnesium 2.0. BMP was unremarkable with sodium of 140, potassium 3.9, chloride 106, bicarb 21, slightly elevated anion gap of 13 and normal renal function with BUN of 20.0, creatinine 1.0, and GFR of 81.30. Liver profile normal findings with exception of slightly elevated AST of 45. Coagulation profile showing PT of 12.1, INR 1.18, and PTT 24.3. BNP normal findings at less than 27. CBC showing no significant abnormalities with WBC count of 7.1, hemoglobin 13.7, and platelet count of 202,000. CT abdomen and pelvis with contrast was negative for acute process. CTA chest negative for PE Chest x-ray negative for acute cardiopulmonary process. Physical exam: Vital signs reviewed and stable. General: Nontoxic, no distress and appears stated age. Derm: Skin warm and dry, normal coloration for ethnicity. Head: Atraumatic, normocephalic and symmetric. Eyes: EOMs intact, no lid lag, and anicteric sclera Mouth: no lip lesions, mucus membranes moist Cardiovascular: regular rate and rhythm with normal S1S2, no murmur, positive posterior tibial pulses bilaterally, and cap refill < 2 seconds. Lungs: Respirations even, regular, and unlabored on room air. Lungs CTA bilaterally, no rhonchi, no rales, no wheezing, and no accessory muscle usage. Abdominal: soft, nontender to palpation, no guarding, no appreciable organomegaly Ext: ROM intact. No gross muscle atrophy, no edema, no contractures Neuro: Speech clear, face symmetrical and CN II-XII grossly intact with no noted focal neuro deficits Psych: Alert and oriented to person, place, time, and situation. Appropriate and pleasant affect. A total of 34 minutes of time were spent preparing this complex discharge summary. Pt was discharged on 10/25/2023 at 8:19 AM. Patient was seen independently by Nurse Practitioner. This document was prepared using [employer] dictation software. Please allow for errors in printed circuit boards stripper etcher while rare they do occur. Pawel Ware NP rendered care for this patient independently, reviewed the findings and plan as documented in the note above. I did not physically speak with or examine the patient on this date. Patient Condition at Discharge: Stable Plan - Discharge Summary Discharge Rx Participant: Yes New Discharge Prescriptions: Continue Simvastatin [Zocor] 20 mg PO DAILY lisinopriL [Zestril] 20 mg PO DAILY Fenofibrate,Micronized [Fenofibrate] 134 mg PO DAILY Discharge Medication List Simvastatin [Zocor] 20 mg PO DAILY 10/22/23 [History] Fenofibrate,Micronized [Fenofibrate] 134 mg PO DAILY 10/24/23 [History] lisinopriL [Zestril] 20 mg PO DAILY 10/24/23 [History] Patient Instructions/Handouts: Chest Pain (DC) Activity/Diet/Wound Care/Special Instructions: Activity: As tolerated. Take breaks as needed. Diet: Heart healthy and carb consistent diet. Avoid salts, or foods with hidden salts such as canned or boxed foods and frozen dinners. Extra salt makes your heart work harder and traps the fluid in your body for longer. Special Instructions: Take all of your medications as directed and remember to keep all of your doctor's appointments and follow-up as needed. You will need to follow-up with your primary care doctor and embedded systems developer when you return to [facility]. Have a safe drive home!! Thank you for allowing us to participate in your care, it was truly a pleasure having you for our patient!!! . Discharge Disposition: HOME SELF-CARE
--- NOTE | 2023-10-25 11:42 | P.PN ---
Subjective HISTORY OF PRESENT ILLNESS: This is a 78-year-old gentleman with a past medical history significant for hypertension and known asymptomatic bradycardia presented to the hospital complaining of chest discomfort but he was camping with his family when he started experiencing discomfort in the middle of the chest when he was sitting with no radiation to the arms or neck or shoulders or back and no associated symptoms of shortness of breath or sweating or dizziness or lightheadedness or any feeling of heart racing or fluttering or presyncope or syncope. The discomfort lasted for few minutes only and resolved. He decided to come to the hospital. Further investigation performed including an EKG showing sinus rhythm with sinus bradycardia with no ischemic ST or T wave abnormalities and also enzymes were checked in different hospital but not available at this point came in to be unremarkable. We are going to repeat the cardiac enzymes while he is here. The rest of the workup by history came in to be unremarkable and currently his chest pain-free. No history of CAD or heart failure or cardiac arrhythmia and never seen a outsole rounder before. The examination is remarkable for regular rhythm with a soft systolic murmur and clear breathing sounds bilaterally and no carotid bruit and no edema was noted October 23, 2023 The patient was seen and evaluated this morning. He is asymptomatic. He is stable with marginally low heart rate which is known to him from before. The echo still pending. I advised the patient to undergo a stress test to rule out severe underlying coronary artery disease and he would like to speak with his w gisell and think about it at this point. Examination is remarkable for regular rhythm with a clear breathing sounds bilaterally and no edema was noted in the lower extremities. Please note that TSH and free T4 came in to be unremarkable October 24, 2023 Patient examined this morning at the bedside. Patient currently denies any chest pain or pressure. He denies shortness of breath. Vital signs are stable. Echocardiogram completed revealing ejection fraction 55 to 60% with no obvious regional wall motion abnormalities. October 25, 2023 Patient examined this morning the bedside. Patient denies any further episodes of chest pain or pressure. He denies any shortness of breath. Vital signs are stable. He underwent Lexiscan stress test yesterday which was negative for ischemia. PHYSICAL EXAM: VITAL SIGNS: Reviewed. GENERAL: Well-developed in no acute distress. NECK: Supple. No JVD or thyromegaly LUNGS: Respirations even and unlabored. Lungs essentially clear to auscultation bilaterally. HEART: Regular rate and rhythm. S1 and S2 heard. EXTREMITIES: Normal range of motion. No clubbing or cyanosis. Peripheral pulses intact. No lower extremity edema ASSESSMENT: Chest pain, troponin negative x 3 Asymptomatic bradycardia Hypertension Hyperlipidemia PLAN: Current cardiac medications Patient is stable for discharge home today from a cardiac perspective Patient encouraged to follow-up with a outsole rounder in [place] where he resides Nurse practitioner note has been reviewed by physician. Signing provider agrees with the documented findings, assessment, and plan of care documented by HEAT TREATER HELPER as a scribe. Objective - Vital Signs Vital signs: Vital Signs Temp 97.8 F 10/25/23 06:55 Pulse 44 L 10/25/23 06:55 Resp 17 10/25/23 06:55 BP 141/76 10/25/23 06:55 Pulse Ox 97 10/25/23 06:55 FiO2 Intake & Output 10/24/23 10/25/23 10/25/23 18:59 06:59 18:59 Intake Total 318 238 Balance 318 238 Intake: Oral 318 238 Other: # Voids 3 1 # Bowel Movements 0 - Labs CBC & Chem 7: 10/23/23 03:22 10/23/23 03:22
== END 2023-10-25 09:03 | disposition home or self-care (01) ==
LOC: EC 09:01 → 6NMEDSUR 09:43
PROVIDERS: ADMIT Family Medicine; ATTEND Family Medicine
DX: R07.89 Other chest pain (principal); I10 Essential (primary) hypertension; R00.1 Bradycardia, unspecified; R79.89 Other specified abnormal findings of blood chemistry; E78.5 Hyperlipidemia, unspecified; Z86.718 Personal history of other venous thrombosis and embolism; Z79.82 Long term (current) use of aspirin; Z79.899 Other long term (current) drug therapy
CPT/HCPCS: 96372 ×3; 99285; 94760; 93005; 93017; 93306; 80061; 80053; 84443; 83735; 84484; 85027; 78452; G0378 ×4; A9500; J1644 ×3; Q9957